=== PATIENT | male | born 1975 | race Caucasian/White ===

== ENCOUNTER 2018-05-29 00:20 | Emergency (ER) | payer MEDICAID ==
[~2018-05-29] VITALS: Ht 170.2 cm; Wt 158.8 kg
[2018-05-29 00:28] VITALS: BP 172/97
--- NOTE | 2018-05-29 00:28 | NUR ---
PT TAKEN TO BED 2
--- NOTE | 2018-05-29 02:18 | NUR ---
Dr. Riggs evaluating patient at bedside.
[2018-05-29] MEDS ORDERED: KETOROLAC 30 MG/ML VIAL IVP ONE (02:25)
[2018-05-29] MEDS ORDERED: FUROSEMIDE 40 MG/4 ML VIAL IVP ONE (02:25)
[2018-05-29 02:40] LABS: BASOPHILS # (AUTO) 0.1 K/uL (0.00-0.22); BASOPHILS % (AUTO) 1.3 % (0.0-2.0); EOSINOPHILS # (AUTO) 0.1 K/uL (0-0.4); EOSINOPHILS % (AUTO) 1.3 % (0.0-4.0); HEMATOCRIT 41.6 % (36-52); HEMOGLOBIN 14.2 g/dL (12.0-18.0); LYMPHOCYTES # (AUTO) 1.2 K/uL (2.0-11.5); LYMPHOCYTES % (AUTO) 15.8 % (20.5-51.1); MEAN CORPUSCULAR HEMOGLOBIN 31 pg (27-31); MEAN CORPUSCULAR HGB CONC 34 g/dL (33-37); MEAN CORPUSCULAR VOLUME 89.2 fL (80-94); MONOCYTES # (AUTO) 0.6 K/uL (0.8-1.0); MONOCYTES % (AUTO) 7.5 % (1.7-9.3); NEUTROPHILS # (AUTO) 5.5 K/uL (1.8-7.7); NEUTROPHILS % (AUTO) 74.1 % (42.2-75.2); PLATELET COUNT (AUTO) 160 K/uL (140-450); RED BLOOD CELL COUNT(AUTO) 4.67 MIL/uL (4.20-6.10); RED CELL DISTRIBUTION WIDTH 14.5 % (11.6-13.7); WHITE BLOOD COUNT (AUTO) 7.4 K/uL (4.8-10.8)
[2018-05-29 02:53] LABS: ANION GAP 9.8 (8-16); CARBON DIOXIDE 32.3 mmol/L (21-32); CREATININE 0.9 mg/dL (0.7-1.3); POTASSIUM 3.1 mmol/L (3.5-5.1)
[2018-05-29 02:58] LABS: ALBUMIN 3.4 g/dL (3.4-5.0); TOTAL BILIRUBIN 0.6 mg/dL (0.0-1.0)
--- NOTE | 2018-05-29 03:09 | NUR ---
EKG PERFORMED AT BEDSIDE WITH SPOUSE PRESENT
[2018-05-29 04:25] VITALS: BP 160/94
--- NOTE | 2018-05-29 04:25 | NUR ---
Patient discharged with v/s stable. Written and verbal after care instructions given and explained. Patient alert, oriented and verbalized understanding of instructions. Ambulatory with steady gait. All questions addressed prior to discharge. ID band removed. Patient advised to follow up with PMD. Rx of MOTRIN AND PREDNISONE given. Patient educated on indication of medication including possible reaction and side effects. Opportunity to ask questions provided and answered.
== END 2018-05-29 04:25 | disposition home or self-care (01) ==
LOC: MED 00:20
DX: R06.02 Shortness of breath (principal); R60.0 Localized edema; R05 Cough
CPT/HCPCS: 36415; 71045; 80053; 83880; 84484; 85025; 93005; 96374; 96375; 99284; J1885; J1940; Q0092

== ENCOUNTER 2021-09-23 20:37 | Emergency (ER) | payer OTHER ==
[~2021-09-23] VITALS: Ht 170.2 cm; Wt 136.5 kg
[~2021-09-23 20:37] MED LIST: ACET-1182 PO; AMLO-3 PO; GABA300C1 PO; IBUP-2213 PO; LOSA100T1 PO
[2021-09-23 20:59] VITALS: BP 142/69
--- NOTE | 2021-09-23 21:28 | NUR ---
PT TAKEN TO BED 01.
--- NOTE | 2021-09-23 22:09 | NUR ---
45 Y/O MALE BIBS FROM HOME, C/O syncope x today. Patient reported, had syncope one episode today ~ 2 hours ago, headache, left jaw pain , neck pain. NO NECK OR BACK PAIN. NO S/S OF TRAUMA OR DEFORMITIES. A/OX4, GCS-15; AMBULATORY W/O ASSISTANCE; UNLABORED BREATHING AND SPEAKING IN FULL SENTENCES. PT DENIES COUGH, FEVER, CP, OR SOB. PMHx: HTN NKA
--- NOTE | 2021-09-23 22:11 | NUR ---
ER MD AT BEDSIDE EXAMINING PT
--- NOTE | 2021-09-23 22:21 | NUR ---
VENEER SAWYER AT BEDSIDE
[2021-09-23 22:31] LABS: BASOPHILS # (AUTO) 0.1 K/uL (0.00-0.22); BASOPHILS % (AUTO) 1.3 % (0.0-2.0); EOSINOPHILS # (AUTO) 0.4 K/uL (0-0.4); EOSINOPHILS % (AUTO) 4.7 % (0.0-4.0); HEMATOCRIT 41.4 % (36-52); HEMOGLOBIN 13.9 g/dL (12.0-18.0); LYMPHOCYTES # (AUTO) 2.7 K/uL (2.0-11.5); LYMPHOCYTES % (AUTO) 36.8 % (20.5-51.1); MEAN CORPUSCULAR HEMOGLOBIN 30 pg (27-31); MEAN CORPUSCULAR HGB CONC 34 g/dL (33-37); MEAN CORPUSCULAR VOLUME 88.8 fL (80-94); MONOCYTES # (AUTO) 0.6 K/uL (0.8-1.0); MONOCYTES % (AUTO) 7.7 % (1.7-9.3); NEUTROPHILS # (AUTO) 3.7 K/uL (1.8-7.7); NEUTROPHILS % (AUTO) 49.5 % (42.2-75.2); PLATELET COUNT (AUTO) 277 K/uL (140-450); RED BLOOD CELL COUNT(AUTO) 4.66 MIL/uL (4.20-6.10); RED CELL DISTRIBUTION WIDTH 14.1 % (11.6-13.7); WHITE BLOOD COUNT (AUTO) 7.5 K/uL (4.8-10.8)
[2021-09-23 22:45] LABS: APPEARANCE,URINE CLEAR (CLEAR); BILIRUBIN,URINE 1+ (NEGATIVE); BLOOD, URINE NEGATIVE (NEGATIVE); COLOR,URINE YELLOW (YELLOW); LEUKOCYTE ESTERASE ,URINE NEGATIVE (NEGATIVE); NITRITE, URINE NEGATIVE (NEGATIVE); PH,URINE 5.5 (5.0-9.0); UGLUCOSE NEGATIVE (NEGATIVE)
[2021-09-23 22:55] LABS: BARBITURATE, URINE NEGATIVE ng/ml (NEG <=200)
[2021-09-23 22:56] LABS: BENZODIAZEPINE, URINE NEGATIVE ng/mL (NEG <=200); CANNABINOID, URINE POSITIVE ng/mL (NEG <=50); COCAINE, URINE NEGATIVE ng/mL (NEG <=300); OPIATE, URINE NEGATIVE ng/mL (NEG <=2000); PHENCYCLIDINE SCREEN,URINE NEGATIVE ng/mL (NEG <=25)
--- NOTE | 2021-09-23 23:02 | NUR ---
PT TAKEN TO CT
[2021-09-23 23:16] LABS: ANION GAP 7.4 (8-16); CARBON DIOXIDE 35.2 mmol/L (21-32); CHLORIDE 105 mmol/L (98-107); POTASSIUM 3.6 mmol/L (3.5-5.1); SODIUM SERUM 144 mmol/L (136-145)
[2021-09-23 23:42] LABS: UREA NITROGEN, BLOOD 20 mg/dL (7-18)
[2021-09-23 23:54] LABS: ASPARTATE AMINOTRANSFERASE 11 U/L (15-37); GFR ARICAN-AMERICAN 104 mL/min (>90); GLUCOSE 137 mg/dL (74-106)
[2021-09-23 23:55] LABS: SALICYLATE < 2.8 mg/dL (2.8-20.0)
[2021-09-23 23:56] LABS: ACETAMINOPHEN < 0.5 ug/ml (10-30)
[2021-09-24 00:11] LABS: ALBUMIN 3.4 g/dL (3.4-5.0)
--- NOTE | 2021-09-24 00:24 | NUR ---
PT SLEEPIN IN BED COMFORTABLY. O2 SAT CONSISTENTLY <92%. PT PLACED ON 1L/MIN NASAL CANULA. O2 NOW AT 95%
[2021-09-24 00:25] LABS: TOTAL BILIRUBIN 0.2 mg/dL (0.0-1.0)
[2021-09-24 00:54] VITALS: BP 137/82
--- NOTE | 2021-09-24 00:55 | NUR ---
Patient discharged with v/s stable. Written and verbal after care instructions given and explained. Patient verbalized understanding. Ambulatory with steady gait. All questions addressed prior to discharge. Advised to follow up with PMD. VSS, A/OX4, AMBULATORY, UNLABORED BREATHING, AND CALM DEMEANOR.
== END 2021-09-24 00:55 | disposition home or self-care (01) ==
LOC: MED 20:37
DX: R55 Syncope and collapse (principal); F17.210 Nicotine dependence, cigarettes, uncomplicated; R42 Dizziness and giddiness; F10.129 Alcohol abuse with intoxication, unspecified; Y90.9 Presence of alcohol in blood, level not specified; J45.909 Unspecified asthma, uncomplicated; I10 Essential (primary) hypertension
CPT/HCPCS: 36415; 70450; 71045; 80053; 80305; 81003; 84484; 85025; 93005; 99285; G0480; G0482

== ENCOUNTER 2021-10-24 16:37 | Emergency (ER) | payer OTHER ==
[~2021-10-24] VITALS: Ht 170.2 cm; Wt 135.2 kg
[2021-10-24 16:41] VITALS: BP 169/122
--- NOTE | 2021-10-24 16:50 | NUR ---
PT AMBULATED WITH STEADY GAIT TO BED 2
--- NOTE | 2021-10-24 17:06 | NUR ---
ER AT BEDSIDE
[2021-10-24] MEDS ORDERED: ACETAMINOPHEN EXTRA STRENGTH 500 MG TAB PO ONE (17:10)
[2021-10-24] MEDS ORDERED: LORazepam 1 MG TAB PO ONE (17:10)
[2021-10-24 17:23] LABS: BASOPHILS # (AUTO) 0.1 K/uL (0.00-0.22); BASOPHILS % (AUTO) 0.7 % (0.0-2.0); EOSINOPHILS # (AUTO) 0.1 K/uL (0-0.4); EOSINOPHILS % (AUTO) 0.9 % (0.0-4.0); HEMATOCRIT 43.7 % (36-52); HEMOGLOBIN 15.1 g/dL (12.0-18.0); LYMPHOCYTES # (AUTO) 1.9 K/uL (2.0-11.5); LYMPHOCYTES % (AUTO) 24.7 % (20.5-51.1); MEAN CORPUSCULAR HEMOGLOBIN 30 pg (27-31); MEAN CORPUSCULAR HGB CONC 34 g/dL (33-37); MEAN CORPUSCULAR VOLUME 86.7 fL (80-94); MONOCYTES # (AUTO) 0.9 K/uL (0.8-1.0); NEUTROPHILS # (AUTO) 4.7 K/uL (1.8-7.7); NEUTROPHILS % (AUTO) 61.7 % (42.2-75.2); PLATELET COUNT (AUTO) 196 K/uL (140-450); RED BLOOD CELL COUNT(AUTO) 5.04 MIL/uL (4.20-6.10); RED CELL DISTRIBUTION WIDTH 13.8 % (11.6-13.7); WHITE BLOOD COUNT (AUTO) 7.6 K/uL (4.8-10.8)
[2021-10-24 17:48] LABS: ALBUMIN 3.8 g/dL (3.4-5.0); ANION GAP 11.6 (8-16); ASPARTATE AMINOTRANSFERASE 21 U/L (15-37); CARBON DIOXIDE 32.6 mmol/L (21-32); CHLORIDE 101 mmol/L (98-107); CREATININE 1.2 mg/dL (0.6-1.3); GFR ARICAN-AMERICAN 85 mL/min (>90); GLUCOSE 117 mg/dL (74-106); LIPASE 140 U/L (73-393); POTASSIUM 3.2 mmol/L (3.5-5.1); SODIUM SERUM 142 mmol/L (136-145); TOTAL BILIRUBIN 0.8 mg/dL (0.0-1.0); UREA NITROGEN, BLOOD 14 mg/dL (7-18)
--- NOTE | 2021-10-24 17:51 | NUR ---
PT UP TO BATHROOM. STEADY GAIT .
--- NOTE | 2021-10-24 18:35 | NUR ---
PT IN BED RESTING HOB ELEVATED. RESP EVEN AND UNLABORED. 8/10 PAIN LEVEL. PENDING TRANSFER TO BE ACCTEPTED FROM [place]. L HAND SWOLLEN. PT UNABLE TO MOVE DIGITS. PT STATES HIS HAND IS NUMB AND FEELS LIKE "PINS AND NEEDLES". FOOD PROVIDED TO PATIENT. SIDE RAIL UPX1. BED AT LOWEST POSITION
[2021-10-24] MEDS ORDERED: KETOROLAC 30 MG/ML VIAL IM ONE (18:40)
[2021-10-24] MEDS ORDERED: FAMO-90 PO (19:00)
[2021-10-24] MEDS ORDERED: LIB25 PO (19:00)
[2021-10-24] MEDS ORDERED: IBUP-1842 PO (19:00)
[2021-10-24] MEDS ORDERED: ONDA4ODT2 PO (19:00)
[2021-10-24 19:20] VITALS: BP 156/105
--- NOTE | 2021-10-24 19:20 | NUR ---
Patient discharged with v/s stable. Written and verbal after care instructions given [facility] [place] and explained. Patient alert, oriented and verbalized understanding of instructions. Ambulatory with steady gait. All questions addressed prior to discharge. ID band removed. Patient advised to follow up with PMD. Rx of PEPCID, MOTRIN, ZOFRAN, AND LIBRIUM given.
--- NOTE | 2021-10-24 19:52 | NUR ---
The patient's care was reviewed and supervised by Lisa Michaels RN.
== END 2021-10-24 19:20 | disposition home or self-care (01) ==
LOC: MED 16:37
DX: F10.239 Alcohol dependence with withdrawal, unspecified (principal); Y90.9 Presence of alcohol in blood, level not specified; J45.909 Unspecified asthma, uncomplicated; I10 Essential (primary) hypertension; Z72.89 Other problems related to lifestyle
CPT/HCPCS: 36415; 70450; 80053; 83690; 84484; 85025; 93005; 96372; 99285; G0482; J1885